=== PATIENT | male | born 1955 | race Caucasian/White ===

== ENCOUNTER 2024-01-30 02:50 | Inpatient (IN) | payer MEDICARE, OTHER ==
[2024-01-30] VITALS (8 sets, daily range): BP systolic 117; BP diastolic 72; TEMP 97.9; O2SAT 92–99
[~2024-01-30] VITALS: Ht 170.2 cm; Wt 82.1 kg
[2024-01-30 03:30] LABS: BASOPHILS # (AUTO) 0.1 K/UL (0.0-0.2); BASOPHILS % (AUTO) 0.3 % (0.0-2.0); EOSINOPHILS # (AUTO) 0.2 K/uL (0.0-0.7); HEMATOCRIT 44.3 % (36.7-47.1); HEMOGLOBIN 14.8 g/dL (12.5-16.3); LYMPHOCYTES # (AUTO) 1.6 K/uL (0.8-4.8); LYMPHOCYTES % (AUTO) 8.7 % (20.5-51.5); MEAN CORPUSCULAR HEMOGLOBIN 31.6 uug (23.8-33.4); MEAN CORPUSCULAR HGB CONC 33 g/dL (32.5-36.3); MEAN CORPUSCULAR VOLUME 94.5 fL (73.0-96.2); MONOCYTES # (AUTO) 0.8 K/uL (0.1-1.30); MONOCYTES % (AUTO) 4.5 % (0.0-11.0); NEUTROPHILS # (AUTO) 15.3 K/uL (1.8-8.9); NEUTROPHILS % (AUTO) 85.5 % (38.5-71.5); PLATELET COUNT (AUTO) 324 K/uL (152-348); RED BLOOD CELL COUNT(AUTO) 4.69 MIL/uL (4.06-5.63); RED CELL DISTRIBUTION WIDTH 14.4 % (12.1-16.2); WHITE BLOOD COUNT (AUTO) 17.9 K/uL (3.6-10.2)
[2024-01-30] MEDS: IV NORMAL SALINE 1000 ML BAG IV ONE (03:43)
[2024-01-30 03:44] LABS: ALBUMIN 4.2 g/dL (3.4-5.0); BILIRUBIN,DIRECT 0.1 mg/dL (0.0-0.2); BILIRUBIN,TOTAL 0.3 mg/dL (0.2-1.0); CALCIUM 9.3 mg/dL (8.5-10.1); CREATININE 1.9 mg/dL (0.6-1.3); POTASSIUM 4.8 mmol/L (3.5-5.1); TOTAL PROTEIN, SERUM 8.3 g/dL (6.4-8.2)
[2024-01-30] MEDS ORDERED: KETOROLAC TROMETHAMINE 15 MG INJ ONE (03:53)
[2024-01-30 03:55] LABS: *BILIRUBIN,URIN NEGATIVE (NEGATIVE); *BLOOD, URINE NEGATIVE (NEGATIVE); *CLARITY,URINE CLEAR (CLEAR); *COLOR,URINE YELLOW (YELLOW); *KETONES,URINE NEGATIVE (NEGATIVE); *PROTEIN,URINE NEGATIVE (NEGATIVE); *UROBILINOGEN,URINE 0.2 E.U./dl (NORMAL); LEUKOCYTE ESTERASE ,URINE NEGATIVE (NEGATIVE); NITRITE, URINE NEGATIVE (NEGATIVE); PH,URINE 5.5 (5.0-8.0); UGLUCOSE NEGATIVE (NEGATIVE)
[2024-01-30] MEDS ORDERED: LORAZEPAM 2 MG/1 ML VIAL ONE (03:57)
[2024-01-30] MEDS: LORAZEPAM 2 MG/1 ML VIAL IV ONE (04:00)
[2024-01-30] MEDS: KETOROLAC TROMETHAMINE 15 MG INJ IVP ONE (04:01)
[2024-01-30 04:07] LABS: *AMPHETAMINE, URINE NEGATIVE (NEGATIVE); *BARBITURATE, URINE NEGATIVE (NEGATIVE); *BENZODIAZEPINE, URINE POSITIVE (NEGATIVE); *CANNABINOID, URINE NEGATIVE (NEGATIVE); *COCCAINE, URINE NEGATIVE (NEGATIVE); *OPIATE, URINE NEGATIVE (NEGATIVE); *PHENCYCLIDINE SCREEN,URINE NEGATIVE (NEGATIVE); FENTANYL, URINE NEGATIVE (NEGATIVE)
[2024-01-30] MEDS ORDERED: CEFTRIAXONE /D5W 50ML IVPB **ER PYXIS IV ONE (05:01)
[2024-01-30] MEDS: CEFTRIAXONE 2 G in IV DEXTROSE 5% 100 ML IV ONE (05:06)
[2024-01-30] MEDS: MIDAZOLAM HCL 2 MG/2 ML VIAL IV ONE (05:43)
[2024-01-30] MEDS ORDERED: ALBUTEROL SULFATE 2.5 MG/3 ML NEBU ONE ×2 (05:59→12:56)
[2024-01-30] MEDS ORDERED: IPRATROPIUM BROMIDE 0.5 MG/2.5 ML NEBU ONE ×2 (05:59→12:56)
[2024-01-30] MEDS: IPRATROPIUM BROMIDE 0.5 MG/2.5 ML NEBU NEB ONE ×2 (06:02→12:54)
[2024-01-30] MEDS: ALBUTEROL SULFATE 2.5 MG/3 ML NEBU NEB ONE ×2 (06:02→12:54)
[2024-01-30] MEDS ORDERED: MAGNESIUM SULFATE 1 GM/2 ML VIAL ONE (06:13)
[2024-01-30] MEDS ORDERED: methylPREDNISolone SOD SUCC 125 MG/2 ML VIAL ONE (06:13)
[2024-01-30] MEDS: MAGNESIUM SULFATE 2 GM in IV DEXTROSE 5% 100 ML IV ONE (06:19)
[2024-01-30] MEDS: methylPREDNISolone SOD SUCC 125 MG/2 ML VIAL IV ONE (06:19)
[2024-01-30 08:08] LABS: *AMPHETAMINE, URINE NEGATIVE (NEGATIVE); *BARBITURATE, URINE NEGATIVE (NEGATIVE); *BENZODIAZEPINE, URINE POSITIVE (NEGATIVE); *CANNABINOID, URINE NEGATIVE (NEGATIVE); *COCCAINE, URINE NEGATIVE (NEGATIVE); *OPIATE, URINE NEGATIVE (NEGATIVE); *PHENCYCLIDINE SCREEN,URINE NEGATIVE (NEGATIVE); FENTANYL, URINE NEGATIVE (NEGATIVE)
[2024-01-30] MEDS ORDERED: ACETAMINOPHEN 500 MG TABLET ONE (12:55)
[2024-01-30] MEDS: ACETAMINOPHEN 500 MG TABLET PO ONE (12:58)
[2024-01-30] MEDS ORDERED: REMEDY ESSENTIAL ZINC PASTE 113 GM TP PRN (16:15)
[2024-01-30] MEDS ORDERED: LORAZEPAM 2 MG/1 ML VIAL IM PRN (16:15)
[2024-01-30] MEDS ORDERED: MAGNESIUM HYDROXIDE 30 ML LIQUID UDC PO PRN (16:15)
[2024-01-30] MEDS ORDERED: ONDANSETRON 4 MG/2 ML VIAL IV PRN (16:15)
[2024-01-30] MEDS ORDERED: THIAMINE HCL INJ 100 MG in IV DEXTROSE 5% 50 ML IV SCH (16:15)
[2024-01-30] MEDS ORDERED: AMLODIPINE 5 MG TABLET ONE (18:09)
[2024-01-30] MEDS ORDERED: QUETIAPINE FUMARATE 100 MG TABLET ONE (18:10)
[2024-01-30] MEDS: AMLODIPINE 5 MG TABLET PO ONE (18:16)
[2024-01-30] MEDS: QUETIAPINE FUMARATE 25 MG TABLET PO ONE (18:16)
[2024-01-30] MEDS ORDERED: QUET300T2 PO (18:36)
[2024-01-30] MEDS ORDERED: HYDR-4075 PO (18:36)
[2024-01-30] MEDS ORDERED: THIAMINE HCL 200 MG/2 ML VIAL ONE (21:18)
[2024-01-30] MEDS ORDERED: levoFLOXacin 500 MG/D5W 100 ML ONE (21:20)
[2024-01-30] MEDS: CHLORDIAZEPOXIDE HCL 25 MG CAPSULE PO SCH (21:22)
[2024-01-30] MEDS: IV NS 1000 ML 1,000 ML IV PRN (21:30)
[2024-01-30] MEDS: THIAMINE HCL INJ 100 MG in IV DEXTROSE 5% 100 ML IV SCH (21:33)
[2024-01-30] MEDS: methylPREDNISolone SOD SUCC 40 MG/ML VIAL IV SCH (21:38)
[2024-01-30] MEDS: levoFLOXacin 500 MG/D5W 500 MG in PREMIXED 1 EACH IV SCH (22:41)
[2024-01-30] MEDS: HYDROCODONE/APAP 10-325 MG TABLET PO PRN (22:51)
[2024-01-30] MEDS: ALBUTEROL SULFATE 1.25 MG/3 ML NEBU NEB SCH (23:01)
[2024-01-30] MEDS: IPRATROPIUM BROMIDE 0.5 MG/2.5 ML NEBU NEB SCH (23:01)
[2024-01-31] VITALS (11 sets, daily range): BP systolic 136–148; BP diastolic 85–91; TEMP 98–98.3; O2SAT 92–99
[2024-01-31 06:54] LABS: BASOPHILS # (AUTO) 0.1 K/UL (0.0-0.2); BASOPHILS % (AUTO) 1.3 % (0.0-2.0); EOSINOPHILS % (AUTO) 0.1 % (0.0-7.0); HEMATOCRIT 40.9 % (36.7-47.1); HEMOGLOBIN 14.1 g/dL (12.5-16.3); LYMPHOCYTES # (AUTO) 0.5 K/uL (0.8-4.8); LYMPHOCYTES % (AUTO) 5.1 % (20.5-51.5); MEAN CORPUSCULAR HEMOGLOBIN 32.5 uug (23.8-33.4); MEAN CORPUSCULAR HGB CONC 34 g/dL (32.5-36.3); MEAN CORPUSCULAR VOLUME 94.5 fL (73.0-96.2); MONOCYTES # (AUTO) 0.4 K/uL (0.1-1.30); NEUTROPHILS # (AUTO) 9.6 K/uL (1.8-8.9); NEUTROPHILS % (AUTO) 89.5 % (38.5-71.5); PLATELET COUNT (AUTO) 270 K/uL (152-348); RED BLOOD CELL COUNT(AUTO) 4.33 MIL/uL (4.06-5.63); RED CELL DISTRIBUTION WIDTH 13.6 % (12.1-16.2); WHITE BLOOD COUNT (AUTO) 10.7 K/uL (3.6-10.2)
[2024-01-31 07:09] LABS: DIFFERENTIAL COMMENT 1
[2024-01-31 07:45] LABS: ALBUMIN 3.3 g/dL (3.4-5.0); BILIRUBIN,TOTAL 1.7 mg/dL (0.2-1.0); CALCIUM 8.4 mg/dL (8.5-10.1); CREATININE 1.2 mg/dL (0.6-1.3); MAGNESIUM 2.3 mg/dL (1.8-2.4); PHOSPHOROUS 2.9 mg/dL (2.5-4.9); TOTAL PROTEIN, SERUM 7.4 g/dL (6.4-8.2)
[2024-01-31 10:22] LABS: LYMPHOCYTES % (MANUAL) 4 % (20-40); METAMYELOCYTES % 2 % (0-1); MONOCYTES % (MANUAL) 5 % (2-10); NEUTROPHILS % (MANUAL) 89 % (42-75); PLATELET ESTIMATE ADEQUATE
[2024-01-31] MEDS ORDERED: SOD FERRIC GLUC COMPLX/SUCROSE 125 MG in IV NORMAL SALINE 100 ML IV SCH (14:00)
[2024-01-31] MEDS: VANCOMYCIN IV 1,250 MG in IV DEXTROSE 5% 250 ML IV SCH (14:29)
[2024-01-31] MEDS: ACETAMINOPHEN 325 MG TABLET PO PRN (16:11)
[2024-01-31] MEDS ORDERED: LORA-259 PO (17:10)
[2024-01-31] MEDS ORDERED: BISA10SU61 RC (17:10)
[2024-01-31] MEDS ORDERED: FLUO20CA36 PO (17:10)
[2024-01-31] MEDS ORDERED: ALBU2.5V38 IH (17:11)
[2024-01-31] MEDS ORDERED: TRIA15CR4 TP (17:12)
[2024-01-31] MEDS: THIAMINE HCL 100 MG TABLET PO SCH (20:21)
[2024-01-31] MEDS ORDERED: levoFLOXacin 250MG /D5W 50 ML IV SCH ×3 (21:00→22:00)
[2024-01-31] MEDS ORDERED: THIAMINE HCL INJ 100 MG in IV DEXTROSE 5% 100 ML IV SCH (21:00)
[2024-01-31] MEDS: levoFLOXacin 500 MG/D5W 100 ML IV SCH (21:08)
[2024-01-31] MEDS: QUETIAPINE FUMARATE 200 MG TABLET PO SCH (22:10)
[2024-02-01] VITALS (9 sets, daily range): BP systolic 108–140; BP diastolic 60–94; TEMP 97.9; O2SAT 92–98
[2024-02-01 07:50] LABS: BASOPHILS % (AUTO) 0.1 % (0.0-2.0); HEMATOCRIT 36.1 % (36.7-47.1); HEMOGLOBIN 12.2 g/dL (12.5-16.3); LYMPHOCYTES # (AUTO) 0.7 K/uL (0.8-4.8); MEAN CORPUSCULAR HEMOGLOBIN 31.9 uug (23.8-33.4); MEAN CORPUSCULAR HGB CONC 34 g/dL (32.5-36.3); MEAN CORPUSCULAR VOLUME 94.8 fL (73.0-96.2); MONOCYTES # (AUTO) 0.6 K/uL (0.1-1.30); MONOCYTES % (AUTO) 4.4 % (0.0-11.0); NEUTROPHILS # (AUTO) 13.3 K/uL (1.8-8.9); NEUTROPHILS % (AUTO) 90.5 % (38.5-71.5); PLATELET COUNT (AUTO) 230 K/uL (152-348); RED BLOOD CELL COUNT(AUTO) 3.81 MIL/uL (4.06-5.63); WHITE BLOOD COUNT (AUTO) 14.7 K/uL (3.6-10.2)
[2024-02-01 07:58] LABS: DIFFERENTIAL COMMENT 1
[2024-02-01 08:36] LABS: CALCIUM 8.1 mg/dL (8.5-10.1); POTASSIUM 4.3 mmol/L (3.5-5.1)
[2024-02-01] MEDS ORDERED: LORAZEPAM 1 MG TABLET PO PRN (10:15)
[2024-02-01] MEDS ORDERED: BISACODYL 10 MG SUPP.RECT RC PRN (10:15)
[2024-02-01] MEDS: CHLORDIAZEPOXIDE HCL 25 MG CAPSULE PO SCH (16:02)
[2024-02-01] MEDS: hydrALAZINE HCL 10 MG TABLET PO SCH (16:03)
[2024-02-01] MEDS ORDERED: Medication Not On Formulary EA (Quetiapine Fumarate (Seroquel) 300 MG) PO SCH (18:00)
[2024-02-01] MEDS ORDERED: methylPREDNISolone SOD SUCC 40 MG/ML VIAL IV SCH (21:00)
[2024-02-02] MEDS ORDERED: VANCOMYCIN IV 1,250 MG in IV DEXTROSE 5% 250 ML IV SCH
[2024-02-02] MEDS ORDERED: FLUOXETINE HCL 20 MG CAPSULE PO SCH (09:00)
== END 2024-02-01 17:50 | disposition left against medical advice (07) | DRG 871 ==
LOC: ER 03:00 → MEDSURG3 20:43
PROVIDERS: ADMIT Nurse Practitioner Acute Care; ATTEND Nurse Practitioner Acute Care
DX: A41.9 Sepsis, unspecified organism (principal); G92.8 Other toxic encephalopathy; N17.0 Acute kidney failure with tubular necrosis; E87.20 Acidosis, unspecified; M62.82 Rhabdomyolysis; J44.1 Chronic obstructive pulmonary disease with (acute) exacerbation; Z53.29 Procedure and treatment not carried out because of patient's decision for other reasons; F17.210 Nicotine dependence, cigarettes, uncomplicated; S00.11XA Contusion of right eyelid and periocular area, initial encounter; S00.83XA Contusion of other part of head, initial encounter; W18.30XA Fall on same level, unspecified, initial encounter; Y93.01 Activity, walking, marching and hiking; Y92.830 Public park as the place of occurrence of the external cause; S02.40E Zygomatic fracture, right side; X58.XXXD Exposure to other specified factors, subsequent encounter; E86.9 Volume depletion, unspecified; G40.909 Epilepsy, unspecified, not intractable, without status epilepticus; F10.129 Alcohol abuse with intoxication, unspecified; Y90.6 Blood alcohol level of 120-199 mg/100 ml; Z66 Do not resuscitate; Z86.61 Personal history of infections of the central nervous system; N40.0 Benign prostatic hyperplasia without lower urinary tract symptoms; Z90.49 Acquired absence of other specified parts of digestive tract; Z96.641 Presence of right artificial hip joint; Z79.899 Other long term (current) drug therapy
CPT/HCPCS: 36415; 70030-TC; 70450; 70486; 71045; 71250; 72125; 83605; 83735; 84100; 84484; 85025; 87040; 94640; 94664; 94760; 97161; A4663; A9150; G0378; G0480; J0696; J1885; J1956; J2060; J2916; J2919; J3411; J3475; J3590; J7040; J7050